=== PATIENT | female | born 1950 | race Caucasian/White ===

== ENCOUNTER 2018-09-17 10:58 | Emergency (ER) | payer BC ==
[2018-09-17 11:08] VITALS: BP 127/84; PULSE 94; TEMP 97.8; BMI 25.0
--- NOTE | 2018-09-17 11:16 | PDOC ---
History of Present Illness - General Chief Complaint: Injury Stated Complaint: RT ANKLE INJURY Time Seen by Provider: 09/17/18 11:05 History Source: Patient Exam Limitations: No Limitations - History of Present Illness Initial Comments: 09/17/18 11:11 67y F presents with R ankle pain. Pt came down on her R ankle wrong while going down stairs on friday. She notse the pain has improved in the past several days , however when she steps in a particular position it will cause her pain and when her dog rolled over her foot when she was sleeping it was painful. Pt took a motrin yetserday with mnimal relieve. no swelling, numbness/tingling/ weakness. No other injuries. ROS: MSK: +R Ankle Pain Neuro: denies numbness/tingling/weakness Exam: Mild ttp to the anterior tabiotalor ligament on R ankle. No focal bony ttp on eithe rmalleoli, no ttp at 5th metacarpal, no tenderness selwhere. mild pain with active dorsiflexion of R ankle. No ttp to knee, LE or hip. Sensation intact, motor function intact. cap refill brisk suspect ankle sprain pt declines pain meds xray to r/o fx Past History - Past Medical History Allergies/Adverse Reactions: Allergies Allergy/AdvReac Type Severity Reaction Status Date / Time latex Allergy Verified 09/17/18 10:59 Home Medications: Ambulatory Orders Linagliptin/Metformin HCl [Jentadueto 2.5 mg-1000 mg Tab] 1 each PO DAILY Olmesartan Medoxomil [Benicar (Nf)] 40 mg PO DAILY 09/17/18 Rosuvastatin Calcium [Crestor] 40 mg PO DAILY 09/17/18 Sertraline HCl [Zoloft] 50 mg PO DAILY 09/17/18 COPD: No - Suicide/Smoking/Psychosocial Hx Smoking History: Never smoked Have you smoked in the past 12 months: No Information on smoking cessation initiated: No Hx Alcohol Use: Yes (1 glass wine per night) Drug/Substance Use Hx: No *Physical Exam - Vital Signs Last Vital Signs Temp Pulse Resp BP Pulse Ox 97.8 F 94 H 20 127/84 96 09/17/18 10:58 09/17/18 10:58 09/17/18 10:58 09/17/18 10:58 09/17/18 10:58 Medical Decision Making - Medical Decision Making 09/17/18 12:01 no acute fx on xray +old fx will dc with supportive care I discussed the physical exam findings, ancillary test results and final diagnoses with the patient. I answered all of the patient's questions. The patient was satisfied with the care received and felt comfortable with the discharge plan and treatment plan. The patient will call their primary care physician within 24 hours to arrange follow-up and will return to the Emergency Department with any new, persistent or worsening symptoms. *DC/Admit/Observation/Transfer Diagnosis at time of Disposition: Ankle pain, right Qualifiers: Chronicity: acute Qualified Code(s): M25.571 - Pain in right ankle and joints of right foot - Discharge Dispostion Disposition: HOME Condition at time of disposition: Improved Decision to Admit order: No - Referrals Referrals: Galdino Zuniga [Non Staff, Medical] - - Patient Instructions Printed Discharge Instructions: DI for Ankle Pain Additional Instructions: You likely have a mild sprain of your ankle. Your xray does not reveal any new fractures (there apepars to be an old fracture ). Take motrin or tylenol as needed for pain. Keep off your leg for a few days to rest. Follow up with your primary care doctor for further managment - Post Discharge Activity Forms/Work/School Notes: Back to Work
== END 2018-09-17 12:29 | disposition home or self-care (01) ==
LOC: FER 10:58
DX: M25.571 Pain in right ankle and joints of right foot (principal); W10.8XXA Fall (on) (from) other stairs and steps, initial encounter; Y93.89 Activity, other specified; Y92.018 Other place in single-family (private) house as the place of occurrence of the external cause; Y99.8 Other external cause status
CPT/HCPCS: 73610-TC-RT-FY; 99281-25